=== PATIENT | female | born 2000 | race Caucasian/White ===

== ENCOUNTER 2024-10-31 04:11 | Inpatient (IN) | payer MEDICAID ==
[~2024-10-31] VITALS: Ht 172.7 cm; Wt 92.2 kg
[2024-10-31 05:10] LABS: BASOPHILS % (AUTO) 0.4 % (0-1); EOSINOPHILS % (AUTO) 0.3 % (0-6); HEMATOCRIT 44.9 % (35.0-45.0); HEMOGLOBIN 14.4 g/dl (12.0-16.0); LYMPHOCYTES # (AUTO) 3.1 X10'3 (1.1-4.8); LYMPHOCYTES % (AUTO) 27.3 % (21-51); MEAN CORPUSCULAR HEMOGLOBIN 26.7 PG (27.0-31.0); MEAN CORPUSCULAR HGB CONC 32.1 g/dL (33.0-36.5); MEAN PLATELET VOLUME 7.7 FL (7.4-10.4); MONOCYTES # (AUTO) 0.8 X10'3 (0-0.9); MONOCYTES % (AUTO) 7.3 % (2-12); NEUTROPHILS # (AUTO) 7.3 X10'3 (1.8-7.7); NEUTROPHILS % (AUTO) 64.7 % (42-75); PLATELET COUNT 400 X10'3 (140-440); RED BLOOD COUNT 5.41 X10'6 (4.20-5.60); RED CELL DISTRIBUTION WIDTH 13.5 % (11.5-14.5); WHITE BLOOD COUNT 11.3 X10'3 (4.5-11.0)
[2024-10-31] MEDS: morphine 4 MG/ML inj SYRINge IV ONE (05:16)
[2024-10-31] MEDS: ondansetron/PF 4mg/2ml inj IV ONE (05:17)
[2024-10-31 05:32] LABS: ALANINE AMINOTRANSFERASE 341 U/L (12-78); ALBUMIN 3.7 G/DL (3.4-5.0); ALBUMIN/GLOBULIN RATIO 0.8 (1.1-1.5); ALKALINE PHOSPHATASE 133 IU/L (46-116); ANION GAP 12 (8-16); BILIRUBIN,TOTAL 1.8 MG/DL (0.1-1.0); BLOOD UREA NITROGEN 8 MG/DL (7-18); BUN/CREATININE RATIO 16.7 (10.0-20.0); CALCIUM 8.7 MG/DL (8.5-10.1); CHLORIDE 104 MMOL/L (99-107); CREATININE 0.48 MG/DL (0.40-0.90); GLUCOSE 97 MG/DL (70-104); LIPASE 37 U/L (16-77); SODIUM 140 MMOL/L (135-145); TOTAL CARBON DIOXIDE 23.9 MMOL/L (24-32); TOTAL PROTEIN 8.1 G/DL (6.4-8.2); eGFR > 90 ML/MIN
[2024-10-31 05:36] LABS: ASPARTATE AMINO TRANSFERASE 378 U/L (10-37)
[2024-10-31 06:06] LABS: BILIRUBIN,URINE MODERATE (Neg); CLARITY,URINE SLIGHTLY CLOUDY (Clear); COLOR,URINE YELLOW (Yellow); GLUCOSE, URINE 100 mg/dl (Neg); KETONES,URINE 40 mg/dl (Neg); LEUKOCYTE ESTERASE ,URINE NEGATIVE (Neg); OCCULT BLOOD,URINE NEGATIVE (Neg); PH,URINE 6.5 (4.8-8.0); PROTEIN,URINE 30 mg/dl (Neg)
[2024-10-31 06:18] LABS: HCG SERUM QL NEGATIVE
[2024-10-31] MEDS ORDERED: iohexol 300mg/ml 100ml inj. ONE (06:23)
[2024-10-31 06:33] LABS: UA COLLECTION TYPE CLN CATCH MIDSTREAM
[2024-10-31 06:34] LABS: BACTERIA,URINE 1+ /HPF (Neg); NITRITES, URINE NEGATIVE (Neg); RBC,URINE 0-2 /HPF (0-2); SQUAMOUS EPITHELIAL CELL,UR MANY /LPF (FEW); WBC,URINE 0-4 /HPF (0-4)
[2024-10-31] MEDS ORDERED: magnesium sulf-water 4G/100mL 100 ML IV PRN (10:20)
[2024-10-31] MEDS ORDERED: mag hydrox/Alum hydrox/simeth 30ml oral suspension PO PRN (10:20)
[2024-10-31] MEDS ORDERED: potassium Cl 20 mEq SR tablet PO PRN ×2 (10:20)
[2024-10-31] MEDS ORDERED: acetaminophen 325mg tablet PO PRN (10:20)
[2024-10-31] MEDS ORDERED: magnesium hydroxide 30ml (MOM) UD suspension PO PRN (10:20)
[2024-10-31] MEDS ORDERED: potassium Cl 40MEQ/1/2NS 520ml 520 ML IV PRN (10:20)
[2024-10-31] MEDS ORDERED: magnesium sulf-water 2g/50mL 50 ML IV PRN (10:20)
[2024-10-31] MEDS: piperacillin/tazo 4.5gm/100ml 100 ML IV SCH (11:25)
[2024-10-31] MEDS: normal saline 1000ml 1,000 ML IV SCH (11:25)
[2024-10-31] MEDS ORDERED: BUPR-297 PO (11:49)
[2024-10-31] MEDS ORDERED: METF-1203 PO (11:49)
[2024-10-31] MEDS: HYDROmorphone inj. 0.5 MG/0.5 ML DISP.SYRIN IV PRN (13:19)
[2024-10-31 14:27] VITALS: RESP 12; O2SAT 97
[2024-10-31] MEDS: ondansetron/PF 4mg/2ml inj IV PRN (14:41)
[2024-10-31 14:50] VITALS: BP 100/63; PULSE 74; RESP 12; TEMP 97.9; O2SAT 97
[2024-10-31 18:00] VITALS: BP 105/71; PULSE 88; RESP 15; TEMP 97.4; O2SAT 99
[2024-10-31] MEDS: docusate sod 100mg capsule PO SCH (20:16)
[2024-10-31] MEDS: K and/or MAG REPLACEMENT MC SCH (20:18)
[2024-10-31 22:00] VITALS: BP 99/64; PULSE 92; RESP 18; TEMP 97.5; O2SAT 99
[2024-11-01] VITALS (20 sets, daily range): BP systolic 88–129; BP diastolic 51–77; PULSE 55–100; RESP 14–20; TEMP 97.6–98.4; O2SAT 93–99
[2024-11-01 05:37] LABS: BASOPHILS % (AUTO) 0.5 % (0-1); EOSINOPHILS # (AUTO) 0.1 X10'3 (0-0.9); EOSINOPHILS % (AUTO) 1.3 % (0-6); HEMATOCRIT 38.8 % (35.0-45.0); HEMOGLOBIN 12.7 g/dl (12.0-16.0); LYMPHOCYTES # (AUTO) 4.9 X10'3 (1.1-4.8); LYMPHOCYTES % (AUTO) 49.7 % (21-51); MEAN CORPUSCULAR HEMOGLOBIN 27.3 PG (27.0-31.0); MEAN CORPUSCULAR HGB CONC 32.8 g/dL (33.0-36.5); MEAN CORPUSCULAR VOLUME 83.4 FL (78-98); MEAN PLATELET VOLUME 7.8 FL (7.4-10.4); MONOCYTES # (AUTO) 0.8 X10'3 (0-0.9); MONOCYTES % (AUTO) 7.9 % (2-12); NEUTROPHILS % (AUTO) 40.6 % (42-75); PLATELET COUNT 348 X10'3 (140-440); RED BLOOD COUNT 4.65 X10'6 (4.20-5.60); RED CELL DISTRIBUTION WIDTH 13.3 % (11.5-14.5); WHITE BLOOD COUNT 9.9 X10'3 (4.5-11.0)
[2024-11-01 06:00] LABS: ALANINE AMINOTRANSFERASE 366 U/L (12-78); ALBUMIN 2.9 G/DL (3.4-5.0); ALBUMIN/GLOBULIN RATIO 0.8 (1.1-1.5); ALKALINE PHOSPHATASE 115 IU/L (46-116); ANION GAP 6 (8-16); ASPARTATE AMINO TRANSFERASE 168 U/L (10-37); BILIRUBIN,TOTAL 0.7 MG/DL (0.1-1.0); BLOOD UREA NITROGEN 8 MG/DL (7-18); BUN/CREATININE RATIO 12.3 (10.0-20.0); CALCIUM 8.2 MG/DL (8.5-10.1); CHLORIDE 108 MMOL/L (99-107); CREATININE 0.65 MG/DL (0.40-0.90); GLUCOSE 95 MG/DL (70-104); POTASSIUM 4.1 MMOL/L (3.5-5.1); SODIUM 141 MMOL/L (135-145); TOTAL CARBON DIOXIDE 27.1 MMOL/L (24-32); TOTAL PROTEIN 6.4 G/DL (6.4-8.2); eCRCL 138 ML/MIN; eGFR > 90 ML/MIN
[2024-11-01] MEDS: buPROPion 75mg tablet PO SCH (08:00)
[2024-11-01] MEDS ORDERED: INDOCYANINE GREEN 25 MG/10 ML VIAL IV ONE (08:15)
[2024-11-01] MEDS: HYDROmorphone/PF 0.2 MG/ML SYRINGE IV PRN (09:06)
[2024-11-01] MEDS: INDOCYANINE GREEN 25 MG/10 ML VIAL IV ONE (09:36)
[2024-11-01] MEDS ORDERED: BUPIVAcaine 2.5mg/ml inj 50ml vial (contains preservative) ONE (10:11)
[2024-11-01] MEDS ORDERED: LIDOcaine 1% 30ml preserv. free vial ONE (10:11)
[2024-11-01] MEDS ORDERED: fentaNYL/PF 50MCG/1 ML 2ML syringe ONE ×2 (11:18→12:03)
[2024-11-01] MEDS ORDERED: midazolam 1 mg/ML 2ml injection ONE (11:19)
[2024-11-01] MEDS ORDERED: dexamethasone sod phosphate 4mg/ml inj. ONE (11:20)
[2024-11-01] MEDS ORDERED: rocuronium 10mg/ml inj IV ONE (11:20)
[2024-11-01] MEDS ORDERED: propofol inj 20 ML IV ONE (11:20)
[2024-11-01] MEDS ORDERED: LIDOcaine 2% (20mg/ml) 5ml vial ONE (11:20)
[2024-11-01] MEDS ORDERED: sevoflurane 250ml liquid IH ONE (11:22)
[2024-11-01] MEDS: ringers solution, lacted 1,000 ML IV SCH (11:25)
[2024-11-01] MEDS ORDERED: morphine 2 MG/ML inj. syringe IV PRN (11:25)
[2024-11-01] MEDS ORDERED: enalaprilat 1.25mg/ml 2ml vial IV PRN (11:25)
[2024-11-01] MEDS ORDERED: morphine 4 MG/ML inj SYRINge IV PRN (11:25)
[2024-11-01] MEDS ORDERED: ondansetron/PF 4mg/2ml inj IV PRN (11:25)
[2024-11-01] MEDS ORDERED: proCHLORperazine 10 MG/2 ml inj IV PRN (11:25)
[2024-11-01] MEDS ORDERED: meperidine/PF 25mg/ml syringe IV PRN ×3 (11:25)
[2024-11-01] MEDS ORDERED: labetalol 20mg/4ml (5mg/ml) syringe IV PRN (11:25)
[2024-11-01] MEDS ORDERED: ondansetron/PF 4mg/2ml inj ONE (11:45)
[2024-11-01] MEDS ORDERED: acetaminophen 1,000mg/100ml IV 100 ML IV ONE (11:45)
[2024-11-01] MEDS ORDERED: ketorolac trometh 30MG/ML vial 30 MG/ML VIAL ONE (11:45)
[2024-11-01] MEDS: BUPIVAcaine/PF 2.5 mg/ml (0.25%) 30ml vial IJ ONE (11:46)
[2024-11-01] MEDS ORDERED: naloxone 0.4 mg/ml inj IV PRN (13:00)
[2024-11-01] MEDS: HYDROcodone/acetaminophen 5mg/325mg tablet PO PRN (14:01)
[2024-11-02 02:00] VITALS: BP 101/69; PULSE 86; RESP 17; TEMP 98.2; O2SAT 97
[2024-11-02] MEDS: HYDROcodone/acetaminophen 10/325mg tab PO PRN (04:12)
[2024-11-02 04:51] LABS: BASOPHILS % (AUTO) 0.2 % (0-1); EOSINOPHILS % (AUTO) 0.1 % (0-6); HEMATOCRIT 40.2 % (35.0-45.0); HEMOGLOBIN 12.8 g/dl (12.0-16.0); LYMPHOCYTES # (AUTO) 3.4 X10'3 (1.1-4.8); LYMPHOCYTES % (AUTO) 26.9 % (21-51); MEAN CORPUSCULAR HEMOGLOBIN 26.6 PG (27.0-31.0); MEAN CORPUSCULAR HGB CONC 31.9 g/dL (33.0-36.5); MEAN CORPUSCULAR VOLUME 83.4 FL (78-98); MEAN PLATELET VOLUME 7.5 FL (7.4-10.4); MONOCYTES # (AUTO) 0.8 X10'3 (0-0.9); MONOCYTES % (AUTO) 6.7 % (2-12); NEUTROPHILS # (AUTO) 8.3 X10'3 (1.8-7.7); NEUTROPHILS % (AUTO) 66.1 % (42-75); PLATELET COUNT 406 X10'3 (140-440); RED BLOOD COUNT 4.82 X10'6 (4.20-5.60); RED CELL DISTRIBUTION WIDTH 13.9 % (11.5-14.5); WHITE BLOOD COUNT 12.5 X10'3 (4.5-11.0)
[2024-11-02 05:07] LABS: ALANINE AMINOTRANSFERASE 265 U/L (12-78); ALBUMIN 3.3 G/DL (3.4-5.0); ALBUMIN/GLOBULIN RATIO 0.8 (1.1-1.5); ALKALINE PHOSPHATASE 105 IU/L (46-116); ANION GAP 8 (8-16); ASPARTATE AMINO TRANSFERASE 65 U/L (10-37); BILIRUBIN,TOTAL 0.7 MG/DL (0.1-1.0); BLOOD UREA NITROGEN 4 MG/DL (7-18); BUN/CREATININE RATIO 7.7 (10.0-20.0); CALCIUM 8.2 MG/DL (8.5-10.1); CHLORIDE 107 MMOL/L (99-107); CREATININE 0.52 MG/DL (0.40-0.90); GLUCOSE 110 MG/DL (70-104); MAGNESIUM 1.9 MG/DL (1.5-2.4); POTASSIUM 3.7 MMOL/L (3.5-5.1); SODIUM 138 MMOL/L (135-145); TOTAL CARBON DIOXIDE 22.8 MMOL/L (24-32); TOTAL PROTEIN 7.2 G/DL (6.4-8.2); eCRCL 173 ML/MIN; eGFR > 90 ML/MIN
[2024-11-02 06:00] VITALS: BP 103/63; PULSE 86; RESP 16; TEMP 98.5; O2SAT 96
[2024-11-02 10:00] VITALS: BP 90/56; PULSE 89; RESP 18; TEMP 97.6; O2SAT 97
[2024-11-02] MEDS ORDERED: HYDR-3964 PO (11:05)
== END 2024-11-02 12:10 | disposition home or self-care (01) | DRG 263 ==
LOC: ER 04:13 → ED HOLD 10:24 → SUR 3N 12:15
PROVIDERS: ADMIT Family Medicine; ATTEND Family Medicine
PROC: 8E0W4CZ Robotic Assisted Procedure of Trunk Region, Percutaneous Endoscopic Approach (ICD-10-PCS; 2024-10-31)
PROC: BW211ZZ Computerized Tomography (CT Scan) of Abdomen and Pelvis using Low Osmolar Contrast (ICD-10-PCS; 2024-10-31)
PROC: BF502Z0 Other Imaging of Bile Ducts using Fluorescing Agent, Intraoperative (ICD-10-PCS; 2024-11-01)
PROC: 0FT44ZZ Resection of Gallbladder, Percutaneous Endoscopic Approach (ICD-10-PCS; principal; 2024-11-01 11:22)
DX: K80.80 Other cholelithiasis without obstruction (principal); K76.0 Fatty (change of) liver, not elsewhere classified; E28.2 Polycystic ovarian syndrome; F43.10 Post-traumatic stress disorder, unspecified; F32.A Depression, unspecified; F41.9 Anxiety disorder, unspecified; Z83.3 Family history of diabetes mellitus; Z79.84 Long term (current) use of oral hypoglycemic drugs; Z87.891 Personal history of nicotine dependence
CPT/HCPCS: 36415; 74177; 76700; 76856; 80053; 81001; 82948; 83690; 83735; 84703; 85025; 87081; 93976; 96374; 96375; 99285; A4215; A4618; A6250; A7000; G0378; J0131; J1100; J1171; J1885; J2003; J2250; J2270; J2405; J2543; J2704; J2710; J3010; J3490; J7030; J7120; Q9967

== ENCOUNTER 2025-01-14 15:20 | Emergency (ER) | payer MEDICAID ==
[~2025-01-14] VITALS: Ht 175.3 cm; Wt 86.4 kg
[~2025-01-14 15:20] MED LIST: BUPR-297 PO; HYDR-3964 PO; METF-1203 PO
--- NOTE | 2025-01-14 15:31 | Physician Documentation ---
History of Present Illness ~ Chief Complaint: Multiple Medical Complaints Stated Complaint: FALL Time Seen by MD: 16:36 OK to notify your PCP?: Yes Source: patient Mode of Arrival: POV Exam Limitations: no limitations HPI 24-year-old female presents for having two syncopal episodes that occurred when she was at a concert outside today. She states the 1st syncopal episode occurred when she was standing and she started to feel very hot so she went to find a place to sit down but did not find a place to sit down and ended up fainting. she states that when she woke up she felt like she was going to have diarrhea so she went to the [place] [facility] in in the [place] she ended up having another syncopal episode. Patient states that she is very intolerant of the heat and being born and raised in [place] she knows that she does not do well in the heat but still decided to go to this consult today and she thought she would be okay if she sat in the shade. No prior syncopal episodes. When she had her syncopal episode in the [place] [facility] she fell forward and hit her nose on the door. Her only complaint currently is that her nose is sore. No trauma to tongue, loss of bowel or bladder control. Patient does not drink alcohol. Patient denies headache, neck pain, chest pain, sob, palpitations, abdominal pain, nausea, lightheadedness, edema, abrasions. Medication Reconciliation Allergies: Coded Allergies: No Known Allergies (Unverified , 01/14/25) Scheduled Bupropion HCl (Bupropion HCl), 1 TAB PO DAILY, (Reported) Scheduled PRN Hydrocodone Bit/Acetaminophen (Hydrocodon-Acetaminophen 5-325), 1 TAB PO Q4H PRN for moderate or severe pain 4-10 Miscellaneous Medications Metformin HCl (Metformin HCl), 1 TAB PO, (Reported) Past Medical History Patient History: FH: diabetes mellitus FATHER (arthritis) MOTHER (diabetes, ) Sisters Sisters Maternal grandfather Review of Systems All Other Systems at this time: Reviewed and Negative Physical Exam Vital Signs: Temperature: 98.4, Source: Temporal, Heart Rate: 98, Respiratory Rate: 16, BP: 91/57, Pulse Oximetry: 94, Weight: 86.360 Oxygen Flow Rate: 0 Physical Exam GENERAL: Alert, no acute distress. HEENT: NCAT, EOMI, PERRL, DRIED BLOOD LEFT AND RIGHT NARE, AROM OF MANDIBLE IS FULL, NO MALOCCLUSION, NO HEMOTYMPANUM, normal oropharynx-NO TRAUMA TO TONGUE, moist oral mucosa. NECK: Supple, trachea midline. CARDIAC: Regular rate and rhythm, no murmurs, rubs, or gallops. Equal distal pulses. No lower extremity edema, cap refill less than 2 seconds. RESPIRATORY: Equal breath sounds, clear to auscultation bilaterally, no respiratory distress. GASTROINTESTINAL: Non distended, soft, nontender, No guarding or rebound. MUSCULOSKELETAL: NO TTP OVER SPINOUS PROCESSES, MOVING CSPINE NORMALLY. Normal range of motion, nontender, no swelling. Normal gait. NEUROLOGICAL: Awake, alert, and oriented x 3. SKIN: Warm/dry, no pallor, no rash. PSYCH: Alert and appropriate. Affect congruent with mood. Speech is clear. Good eye contact. Progress Results/Orders Results/Orders Orders - ALBINO SANTOS Urinalysis, Cult If Indicated (01/14/25 16:37) Culture Blood (01/14/25 16:37) Hcg, Ur Ql (01/14/25 16:37) Lactic,2hr (01/14/25 18:49) Completed Orders - ALBINO SANTOS Procalcitonin (01/14/25 16:37) Lacticsepsis (01/14/25 16:37) Normal Saline 1000ml (Sodium Chloride 10 (01/14/25 17:35) Medications Received in ER Medications (Trade) Dose Ordered Sig/Misael Route PRN Reason Start Time Stop Time Status Last Admin Dose Admin (sodium chloride 1000ml IV soln) 2,000 ml ONCE ONCE IVB 01/14/25 17:35 01/14/25 17:36 DC 01/14/25 17:55 2,000 ML Vital Signs 01/14/25 01/14/25 01/14/25 01/14/25 15:22 16:45 16:45 17:57 Temp 98.4 98.4 98.4 Pulse 98 108 113 Resp 16 14 15 12 B/P (MAP) 91/57 123/77 (92) 117/72 (87) Pulse Ox 94 99 97 O2 Flow Rate 0 0 0 01/14/25 18:27 Resp 16 B/P (MAP) Laboratory Tests Test 01/14/25 15:32 01/14/25 17:02 01/14/25 17:13 01/14/25 18:01 White Blood Count 18.4 H Red Blood Count 5.08 Hemoglobin 13.5 Hematocrit 41.3 Mean Corpuscular Volume 81.2 Mean Corpuscular Hemoglobin 26.5 L Mean Corpuscular Hemoglobin Concent 32.6 L Red Cell Distribution Width 14.2 Platelet Count 501 H Mean Platelet Volume 7.4 Neutrophils (%) (Auto) 69.9 Lymphocytes (%) (Auto) 24.7 Monocytes (%) (Auto) 4.9 Eosinophils (%) (Auto) 0.4 Basophils (%) (Auto) 0.1 Neutrophils # (Auto) 12.9 H Lymphocytes # (Auto) 4.5 Monocytes # (Auto) 0.9 Eosinophils # (Auto) 0.1 Basophils # (Auto) 0.0 CBC Comment Sodium Level 144 Potassium Level 3.7 Chloride Level 107 Carbon Dioxide Level 23.6 L Anion Gap 13 Blood Urea Nitrogen 10 Creatinine 0.91 H Estimated GFR/1.73 m2 77 BUN/Creatinine Ratio 11.0 Glucose Level 145 H Calcium Level 9.1 Troponin I High Sensitivity < 4 L < 4 L < 4 L Troponin I High Sens Percent Delta Troponin I Hi Sens Absolute Change Pro-B-Type Natriuretic Peptide < 30 Albumin 3.9 Chemistry Comments Procalcitonin < 0.05 Lactic Acid Level 2.7 H Medical Decision Making Differential Dx:Considerations: Include: anemia, CVA, cerebral occlusion, cerebral thrombosis, dehydration, dysrhythmia, electrolyte disorder, encephalopathy, hypoglycemia, hypovolemia, labyrinthitis, Meniere's disease, myocardial infarction, pulmonary embolus, TIA, vasovagal, VBI, vertigo central, vertigo peripheral, vestibular neuronitis, other Additional Information PATIENT WAS GIVEN 2 L OF NORMAL SALINE AND STILL WAS UNABLE TO GIVE US A URINE SAMPLE. HER ELEVATED WHITE BLOOD CELL COUNT AND ELEVATED LACTATE I SUSPECT IS DUE TO BEING DRY. WE ARE GOING TO HYDRATE HER WITH ANOTHER L IN ORDER TO GET A URINE SAMPLE TO MAKE SURE THAT THERE IS NO SOURCE OF AN INFECTION BUT I SUSPECT THAT HER ELEVATED WHITE COUNT IS AGAIN DUE TO BEING DRY. SHE WAS HYPOTENSIVE UPON ARRIVAL. PATIENT IS AFEBRILE NOW NORMOTENSIVE AND DENIES ANY CONCERNS OR COMPLAINTS OTHER THAN HER SORE NOSE. PATIENT HAD NO PERIOD OF BEING POSTICTAL PER FATHER WHO WAS BYSTANDER. PATIENT HAD NO TRAUMA TO HER TONGUE THERE WAS NO EVIDENCE THAT THIS WAS A SEIZURE. Departure Time of Disposition: 19:21 Disposition: 01 HOME / SELF CARE / HOMELESS Impression: Primary Impression: Syncope Qualified Codes: T67.1XXS - Heat syncope, sequela Additional Impressions: Intolerance to heat Nosebleed Condition: Stable Discharge Instructions: Syncope, Adult, [id number] Additional Instructions: YOU WERE HYDRATED WITH 2 L OF NORMAL SALINE AND STILL UNABLE TO GIVE US A URINE SAMPLE SO WE HYDRATED YOU WITH ANOTHER LITER. I SUSPECT YOUR PASSING OUT WAS FROM INADEQUATE FLUID INTAKE TODAY. YOU DO HAVE ELEVATED WHITE BLOOD CELL COUNT AND ELEVATED LACTATE BUT DO NOT HAVE A FEVER OR ANY OTHER EVIDENCE FOR SOURCE OF INFECTION AND THUS I SUSPECT THE ELEVATED WHITE COUNT IS DUE TO HEMOCONCENTRATION FROM LACK OF FLUID INTAKE. YOU HAD NO PERIOD OF BEING POSTICTAL AND NO TRAUMA TO HER TONGUE OR LOSS OF BOWEL OR BLADDER AND THUS SEIZURE UNLIKELY. Referrals: NO PRIMARY CARE PROVIDER (PCP) Education Educated: Patient Educated regarding: diagnosis, treatment, need for follow up Additional Comment Medical Screen Exam This patient recieved a medical screening examination. After reviewing the individual's medical complaints with presenting symptoms and performing an appropriate physical examination, it was determined that no emergency medical condition is present. This individual is also not a women having contractions. Signature Scribe Signature: X Attestation: VIRAJ MARIA Jan 14, 2025 15:31 ALBINO SANTOS Jan 14, 2025 19:20
--- NOTE | 2025-01-14 15:33 | ELECTROCARDIOGRAPH REPORT ---
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 Eri Madrid Measurements Intervals [place] Rate: 92 P: 43 PA: 137 QRS: 58 QRSD: 98 T: 49 QT: 360 QTc: 446 Interpretive Statements Sinus rhythm Electronically Signed On 01-14-2025 15:55:[address] Eri Madrid Please click the below link to view image of tracing.
[2025-01-14 16:00] LABS: BASOPHILS % (AUTO) 0.1 % (0-1); EOSINOPHILS # (AUTO) 0.1 X10'3 (0-0.9); EOSINOPHILS % (AUTO) 0.4 % (0-6); HEMATOCRIT 41.3 % (35.0-45.0); HEMOGLOBIN 13.5 g/dl (12.0-16.0); LYMPHOCYTES # (AUTO) 4.5 X10'3 (1.1-4.8); LYMPHOCYTES % (AUTO) 24.7 % (21-51); MEAN CORPUSCULAR HEMOGLOBIN 26.5 PG (27.0-31.0); MEAN CORPUSCULAR HGB CONC 32.6 g/dL (33.0-36.5); MEAN CORPUSCULAR VOLUME 81.2 FL (78-98); MEAN PLATELET VOLUME 7.4 FL (7.4-10.4); MONOCYTES # (AUTO) 0.9 X10'3 (0-0.9); MONOCYTES % (AUTO) 4.9 % (2-12); NEUTROPHILS # (AUTO) 12.9 X10'3 (1.8-7.7); NEUTROPHILS % (AUTO) 69.9 % (42-75); PLATELET COUNT 501 X10'3 (140-440); RED BLOOD COUNT 5.08 X10'6 (4.20-5.60); RED CELL DISTRIBUTION WIDTH 14.2 % (11.5-14.5); WHITE BLOOD COUNT 18.4 X10'3 (4.5-11.0)
--- NOTE | 2025-01-14 16:18 | RADIOLOGY REPORT ---
EXAM: DI CHEST,SINGLE VIEW TECHNIQUE: Single frontal chest radiograph CLINICAL HISTORY: CP COMPARISON: None Findings/Impression: Frontal chest radiograph demonstrates no acute osseous or superficial soft tissue abnormalities. The trachea is midline. The cardiac silhouette and mediastinum are within normal limits. No pneumothorax, pleural effusions, or consolidations.
[2025-01-14 16:21] LABS: ALBUMIN 3.9 G/DL (3.4-5.0); ANION GAP 13 (8-16); BLOOD UREA NITROGEN 10 MG/DL (7-18); CALCIUM 9.1 MG/DL (8.5-10.1); CHLORIDE 107 MMOL/L (99-107); CREATININE 0.91 MG/DL (0.40-0.90); GLUCOSE 145 MG/DL (70-104); POTASSIUM 3.7 MMOL/L (3.5-5.1); PRO BRAIN NATRIURETIC PEPTIDE < 30 PG/ML (0-125); SODIUM 144 MMOL/L (135-145); TOTAL CARBON DIOXIDE 23.6 MMOL/L (24-32); eCRCL 101 ML/MIN; eGFR 77 ML/MIN
[2025-01-14] MEDS: normal saline 1000ML IV soln IVB ONE (17:55)
[2025-01-14 20:29] LABS: BILIRUBIN,URINE SMALL (Neg); CLARITY,URINE SLIGHTLY CLOUDY (Clear); COLOR,URINE STRAW (Yellow); GLUCOSE, URINE NEGATIVE (Neg); KETONES,URINE 15 mg/dl (Neg); LEUKOCYTE ESTERASE ,URINE NEGATIVE (Neg); NITRITES, URINE NEGATIVE (Neg); OCCULT BLOOD,URINE LARGE (Neg); PROTEIN,URINE 30 mg/dl (Neg)
[2025-01-14 20:30] LABS: UA COLLECTION TYPE CLN CATCH MIDSTREAM
[2025-01-14 20:32] LABS: URINE HCG NEGATIVE (NEG)
[2025-01-14 20:40] LABS: MUCUS STRANDS MANY /LPF (Neg); RBC,URINE 50-100 /HPF (0-2); SQUAMOUS EPITHELIAL CELL,UR FEW /LPF (FEW); WBC,URINE NONE SEEN /HPF (0-4)
[2025-01-14 20:41] LABS: BACTERIA,URINE NONE SEEN /HPF (Neg); CAL OXALATE CRYSTALS FEW /HPF (NEGATIVE)
[2025-01-14 21:59] VITALS: BP 110/76; PULSE 100; RESP 18; TEMP 98.1; O2SAT 100
== END 2025-01-14 22:02 | disposition home or self-care (01) ==
LOC: ER 15:20
DX: T67.1XXA Heat syncope, initial encounter (principal); R04.0 Epistaxis; Z79.899 Other long term (current) drug therapy; X58.XXXA Exposure to other specified factors, initial encounter; Y93.89 Activity, other specified; Y92.89 Other specified places as the place of occurrence of the external cause; Y99.8 Other external cause status
CPT/HCPCS: 36415; 71045; 80048; 81001; 81025; 83605; 83880; 84145; 84484; 85025; 87040; 93005; 96360; 96361; 99285; J7030